=== PATIENT | female | born 1955 | race Caucasian/White ===

== ENCOUNTER 2019-04-21 18:47 | Emergency (ER) | payer OTHER ==
--- NOTE | 2019-04-21 19:28 | EDM.PDOC ---
ED HPI GENERAL MEDICAL PROBLEM - General Chief Complaint: Upper Extremity Injury/Pain Stated Complaint: RIGHT SHOULDER PAIN Time Seen by Provider: 04/21/19 19:45 Source of Information: Reports: Patient History Limitations: Reports: No Limitations - History of Present Illness INITIAL COMMENTS - FREE TEXT/NARRATIVE: Daniella is a 63 year old female who presents to the ED today with c/o progressive right shoulder pain for the last week. Denies any injury. Patient taking Tylenol and Tylenol PM for pain without much relief. Pain worse with lifting arm forward, to the side and over her chest to anterior shoulder. Hx of rotator cuff repair 10 year ago. Pain does occasionally radiation down to middle of right upper arm. Onset: Gradual right shoulder Pain Score (Numeric/FACES): 7 - Related Data Allergies Allergy/AdvReac Type Severity Reaction Status Date / Time metronidazole Allergy Hives Verified 04/21/19 19:42 Sulfa (Sulfonamide Allergy Anaphylactic Verified 04/21/19 19:42 Antibiotics) Shock Review of Systems - Review of Systems Review Of Systems: ROS reveals no pertinent complaints other than HPI. ED EXAM, GENERAL - Physical Exam Exam: See Below Exam Limited By: No Limitations General Appearance: Alert, WD/WN, No Apparent Distress Respiratory/Chest: No Respiratory Distress Cardiovascular: Regular Rate, Rhythm Back Exam: Normal Inspection Extremities: Other (tenderness to anterior shoulder along labrum, pain with arm raise and adduction, no deformity, cap refill and distal pulses intact, sensation intact) Neurological: Alert, Oriented, CN II-XII Intact Psychiatric: Normal Affect, Normal Mood Skin Exam: Warm, Dry, Intact Lymphatic: No Adenopathy Course - Vital Signs Last Recorded V/S: Last Vital Signs Temp 36.3 C 04/21/19 19:46 Pulse 105 H 04/21/19 19:46 Resp 17 04/21/19 19:46 BP 121/87 04/21/19 19:46 Pulse Ox 95 04/21/19 19:46 Daniella is a 63 year old female, presents to the ED today with progressive right shoulder pain. Please refer to HPI and focused exam. Patient's exam reveals anterior shoulder tenderness, consistent with inflammation, no swelling, ? labrum inflammation vs. rotator cuff vs. arthritis. Discussed with patient, continue with Ibuprofen/Tylenol for pain, Start prednisone taper, Flexeril for muscle relaxer, follow up with PCP next week, if no improvement recommend MRI. Sling for comfort. discussed reasons to return to the ED. Patient agreeable and discharged in stable condition. Departure - Departure Time of Disposition: 20:30 Disposition: Home, Self-Care 01 Condition: Good Clinical Impression: Shoulder pain, right Qualifiers: Chronicity: acute Qualified Code(s): M25.511 - Pain in right shoulder - Discharge Information Instructions: Shoulder Pain, Tendinitis, [id number] Referrals: PCP,None [Primary Care Provider] - Forms: ED Department Discharge Additional Instructions: Start prednisone taper in the morning so it does not keep you up tonight. Ibuprofen/Tylenol for pain. Sling for comfort. Flexeril is a muscle relaxer, may make you sleepy, so do not drive or drink alcohol if you take this. Follow up with primary care provider in a week, if symptoms not improved by then would recommend an MRI.
== END 2019-04-21 20:46 | disposition home or self-care (01) ==
LOC: JP.ED 18:47
DX: M25.511 Pain in right shoulder (principal); F41.9 Anxiety disorder, unspecified; Z88.1 Allergy status to other antibiotic agents
CPT/HCPCS: 99283